=== PATIENT | female | born 1970 | race Hispanic/Latino ===

== ENCOUNTER 2020-07-29 02:21 | Inpatient (IN) | payer SELFPAY ==
[2020-07-29] MEDS ORDERED: Labetalol HCl 100 MG/20 ML VIAL ONE (02:38)
[2020-07-29 02:52] LABS: #Lymphocytes 2.1 thou/uL (1.20-3.40); #Monocytes 0.4 thou/uL (0.11-0.59); %Basophils 0.3 % (0.0-1.0); %Eosinophils 0.2 % (0.0-10.0); %Lymphocytes 15.5 % (21.0-51.0); %Monocytes 2.7 % (0.0-10.0); %Neutrophils 81.3 % (42.0-75.0); Hemoglobin 14.6 g/dL (12.0-16.0); Mean Corpuscular HGB CONC 34.6 g/dL (32.0-36.0); Mean Corpuscular Hemoglobin 30.5 pg (27.0-31.0); Mean Corpuscular Volume 88.4 fL (78.0-98.0); Platelet Count 348 thou/uL (130-400); RBC Distribution Width 11.9 % (11.5-14.5); Red Blood Cell (RBC) Count 4.79 mill/uL (4.20-5.40); White Blood Cell (WBC) Count 13.5 thou/uL (4.8-10.8)
[2020-07-29 03:12] LABS: Acetaminophen Less than 6.0 mcg/mL (10.0-30.0); Alcohol Less than 10 mg/dL (Less than 10); Salicylate Less than 8.0 mg/dL (15.0-30.0)
[2020-07-29 03:17] LABS: ALT (SGPT) 16 U/L (8-55); AST (SGOT) 14 U/L (5-34); Albumin 3.6 g/dL (3.5-5.0); Alkaline Phosphatase 217 U/L (40-110); Anion Gap 15 mmol/L (10-20); BUN (Urea Nitrogen) 8 mg/dL (7.0-18.7); Bilirubin, Total 0.2 mg/dL (0.2-1.2); Calc. Creatinine Clearance 0 mL/min (70-130); Calcium 8.5 mg/dL (7.8-10.44); Carbon Dioxide 23 mmol/L (22-29); Chloride 99 mmol/L (98-107); Globulin 4.5 g/dL (2.4-3.5); Glucose 455 mg/dL (70-105); Potassium 3.9 mmol/L (3.5-5.1); Protein, Total 8.1 g/dL (6.0-8.3); Sodium 133 mmol/L (136-145)
[2020-07-29 03:20] LABS: BHCG - Serum Negative (NEGATIVE); Pregs Control Background? CLEAR/WHITE (CLR/WHITE); Pregs Control Bar Appear? YES (CONTROL BAR)
[2020-07-29 03:30] LABS: Thyroid Stimulating Hormone 1.5994 uIU/mL (0.35-4.94)
[2020-07-29 03:53] LABS: Bacteria/HPF None Seen HPF (None Seen); Bilirubin Negative (Negative); Blood, Urine Negative (Negative); Clarity Clear (Clear); Glucose, Urine (Dipstick) Greater than 1000 mg/dL (Negative); Ketone, Urine Negative (Negative); Leukocyte Negative Leu/uL (Negative); Nitrite Negative (Negative); Protein, Urine (Dipstick) 20 mg/dL (Neg-Trace); RBC/HPF 0-3 HPF (0-3); Specific Gravity, Urine 1.035 (1.002-1.036); Squamous Epithelial 0-3 HPF (0-3); Urobilinogen Normal mg/dL (Less than 2); WBC/HPF 0-3 HPF (0-3)
[2020-07-29 04:00] LABS: Amphetamine Not Detected (NotDetected); Barbiturates Screen Not Detected (NotDetected); Benzodiazepine Screen Not Detected (NotDetected); Cocaine Metabolite Screen Not Detected (NotDetected); Medtox Control Line Valid? VALID (VALID); Medtox Reader # READER 1; Methadone Not Detected (NotDetected); Methamphetamine Not Detected (NotDetected); Opiate Screen Not Detected (NotDetected); Oxycodone Screen Not Detected (NotDetected); Phencyclidine (PCP) Not Detected (NotDetected); THC/Cannabinoid Screen Not Detected (NotDetected); Tricyclic Screen Not Detected (NotDetected)
[2020-07-29] MEDS ORDERED: Insulin Regular 300 UNITS/3 ML VIAL ONE (04:37)
[2020-07-29] MEDS ORDERED: Aspirin Chewable 81 MG TAB ONE (05:54)
[2020-07-29] MEDS ORDERED: hydrALAZINE 20 MG/ML VIAL ONE (06:38)
[2020-07-29] MEDS ORDERED: Acetaminophen 650 MG Suppository PR PRN (08:30)
[2020-07-29] MEDS ORDERED: Senokot S 8.6-50 MG TAB PO PRN (08:30)
[2020-07-29 09:28] LABS: Cardiac Risk 4.9 (Less than 4.5)
[2020-07-29] MEDS ORDERED: Ondansetron PF 4 MG/2 ML Vial IVP PRN (09:28)
[2020-07-29] MEDS ORDERED: Ondansetron ODT 4 MG TAB PO PRN (09:28)
[2020-07-29] MEDS ORDERED: Acetaminophen 325 MG TAB PO PRN (09:29)
[2020-07-29] MEDS ORDERED: Iopamidol-370 76% 500 ML 1 ML ONE (10:06)
[2020-07-29] MEDS ORDERED: Lorazepam 1 MG TAB ONE (11:16)
[2020-07-29 11:29] VITALS: BMI 50.9
[2020-07-29] MEDS ORDERED: Labetalol HCl 100 MG/20 ML VIAL SLOW IVP SCH (11:30)
[2020-07-29] MEDS ORDERED: Lorazepam 1 MG TAB PO SCH (11:30)
[2020-07-29] MEDS: Sodium Chloride 0.9% 1,000 ML IV SCH ×2 (11:32→18:04)
[2020-07-29] MEDS ORDERED: Dextrose 5% in Water 1,000 ML IV PRN (14:04)
[2020-07-29] MEDS ORDERED: Dextrose 50% Abboject 50 ML SYRINGE SLOW IVP PRN (14:04)
[2020-07-29] MEDS ORDERED: hydrALAZINE 25 MG TAB ONE (14:06)
[2020-07-29] MEDS: hydrALAZINE 25 MG TAB PO SCH ×3 (14:09→20:33)
[2020-07-29] MEDS: metFORMIN 500 MG TAB PO SCH (16:57)
[2020-07-29] MEDS: HumaLOG 300 UNITS/3 ML VIAL SC PRN (16:59)
[2020-07-29] MEDS: Metoprolol Tartrate 5 MG/5 ML VIAL IVP PRN (18:59)
[2020-07-29] MEDS ORDERED: Atorvastatin Calcium 20 MG TAB PO SCH (21:00)
[2020-07-30 04:31] LABS: #Eosinphils 0.1 thou/uL (0.0-0.7); #Lymphocytes 3.5 thou/uL (1.20-3.40); #Monocytes 0.8 thou/uL (0.11-0.59); #Neutrophils 10.2 thou/uL (1.40-6.50); %Basophils 0.2 % (0.0-1.0); %Eosinophils 0.9 % (0.0-10.0); %Lymphocytes 23.9 % (21.0-51.0); %Monocytes 5.3 % (0.0-10.0); %Neutrophils 69.7 % (42.0-75.0); Hemoglobin 13.6 g/dL (12.0-16.0); Mean Corpuscular HGB CONC 34.2 g/dL (32.0-36.0); Mean Corpuscular Hemoglobin 30.4 pg (27.0-31.0); Mean Corpuscular Volume 88.8 fL (78.0-98.0); Mean Platelet Volume 6.9 fL (7.4-10.4); Platelet Count 353 thou/uL (130-400); RBC Distribution Width 12.2 % (11.5-14.5); Red Blood Cell (RBC) Count 4.49 mill/uL (4.20-5.40); White Blood Cell (WBC) Count 14.7 thou/uL (4.8-10.8)
[2020-07-30 04:35] LABS: Hemoglobin A1c 10.8 % (4.0-6.0)
[2020-07-30 04:56] LABS: Anion Gap 11 mmol/L (10-20); BUN (Urea Nitrogen) 12 mg/dL (7.0-18.7); Calc. Creatinine Clearance 208 mL/min (70-130); Calcium 8.3 mg/dL (7.8-10.44); Carbon Dioxide 24 mmol/L (22-29); Cardiac Risk 5.6 (Less than 4.5); Chloride 104 mmol/L (98-107); Cholesterol 161 mg/dl (< 200 Desired); Glucose 270 mg/dL (70-105); HDL Cholesterol 29 mg/dL (>60 Neg Risk); LDL Cholesterol, Calculated 102 mg/dL; Potassium 3.8 mmol/L (3.5-5.1); Sodium 135 mmol/L (136-145); Triglycerides 151 mg/dL (Less than 150)
[2020-07-30] MEDS: HumaLOG 300 UNITS/3 ML VIAL SC PRN (06:23)
[2020-07-30] MEDS: hydrALAZINE 25 MG TAB PO SCH ×3 (08:43→21:00)
[2020-07-30] MEDS: metFORMIN 500 MG TAB PO SCH ×2 (08:44→17:19)
[2020-07-30] MEDS: Enoxaparin Sodium 40 MG/0.4 ML SYRINGE SC SCH (08:44)
[2020-07-30] MEDS ORDERED: Dextrose 50% Abboject 50 ML SYRINGE SLOW IVP PRN (09:50)
[2020-07-30] MEDS ORDERED: Dextrose 5% in Water 1,000 ML IV PRN (09:50)
[2020-07-30] MEDS: HumaLOG 300 UNITS/3 ML VIAL SC SCH ×2 (11:20→17:19)
[2020-07-30] MEDS: Metoprolol Tartrate 5 MG/5 ML VIAL IVP PRN (11:23)
[2020-07-30 16:56] LABS: SARS-CoV-2 PCR by NAA Not Detected (NotDetected)
[2020-07-30] MEDS: Lisinopril 2.5 MG TAB PO SCH (20:59)
[2020-07-30] MEDS: Atorvastatin Calcium 20 MG TAB PO SCH (20:59)
[2020-07-31] MEDS: HumaLOG 300 UNITS/3 ML VIAL SC SCH ×3 (06:18→17:18)
[2020-07-31] MEDS: Acetaminophen 325 MG TAB PO PRN (09:25)
[2020-07-31] MEDS: Lisinopril 2.5 MG TAB PO SCH (09:26)
[2020-07-31] MEDS: metFORMIN 500 MG TAB PO SCH ×2 (09:26→17:18)
[2020-07-31] MEDS: Enoxaparin Sodium 40 MG/0.4 ML SYRINGE SC SCH (09:26)
[2020-07-31] MEDS: hydrALAZINE 25 MG TAB PO SCH ×3 (09:26→21:45)
[2020-07-31] MEDS ORDERED: Loperamide HCl 2 MG CAP PO PRN (12:10)
[2020-07-31] MEDS ORDERED: diphenhydrAMINE 25 MG CAP PO PRN (12:10)
[2020-07-31] MEDS: Hydrochlorothiazide 25 MG TAB PO SCH (21:45)
[2020-07-31] MEDS: Atorvastatin Calcium 20 MG TAB PO SCH (21:47)
[2020-07-31] MEDS: Lisinopril 20 MG TAB PO SCH (21:47)
[2020-07-31] MEDS: HumuLIN 70/30 (300 UNITS/3 ML VIAL) SC SCH (23:23)
[2020-08-01] MEDS: Acetaminophen 325 MG TAB PO PRN (06:50)
[2020-08-01] MEDS: metFORMIN 500 MG TAB PO SCH ×2 (09:58→17:08)
[2020-08-01] MEDS: Hydrochlorothiazide 25 MG TAB PO SCH (09:58)
[2020-08-01] MEDS: Lisinopril 20 MG TAB PO SCH ×2 (09:58→20:41)
[2020-08-01] MEDS: hydrALAZINE 25 MG TAB PO SCH ×3 (09:58→20:40)
[2020-08-01] MEDS: HumuLIN 70/30 (300 UNITS/3 ML VIAL) SC SCH ×2 (09:59→20:42)
[2020-08-01] MEDS: Enoxaparin Sodium 40 MG/0.4 ML SYRINGE SC SCH (09:59)
[2020-08-01] MEDS: HumaLOG 300 UNITS/3 ML VIAL SC SCH ×2 (12:52→17:07)
[2020-08-01] MEDS: Atorvastatin Calcium 20 MG TAB PO SCH (20:41)
[2020-08-02] MEDS: Acetaminophen 325 MG TAB PO PRN (05:30)
[2020-08-02] MEDS: HumaLOG 300 UNITS/3 ML VIAL SC SCH (05:33)
[2020-08-02] MEDS ORDERED: Aspirin Chewable 81 MG TAB PO SCH (09:00)
[2020-08-02] MEDS ORDERED: Hydrochlorothiazide 25 MG TAB PO SCH (09:00)
[2020-08-02 09:12] VITALS: BP 124/58; TEMP 98.3
[2020-08-02] MEDS: metFORMIN 500 MG TAB PO SCH (09:16)
[2020-08-02] MEDS: hydrALAZINE 25 MG TAB PO SCH (09:16)
[2020-08-02] MEDS: Enoxaparin Sodium 40 MG/0.4 ML SYRINGE SC SCH (09:17)
[2020-08-02] MEDS: HumuLIN 70/30 (300 UNITS/3 ML VIAL) SC SCH (09:17)
[2020-08-02] MEDS: Lisinopril 20 MG TAB PO SCH (09:17)
== END 2020-08-02 13:32 | disposition home or self-care (01) | DRG 65 ==
LOC: ERS 02:21 → ERHOLD 05:00 → 2NO 16:22
PROVIDERS: ADMIT Internal Medicine; ATTEND Internal Medicine
DX: I63.9 Cerebral infarction, unspecified (principal); I67.4 Hypertensive encephalopathy; G81.94 Hemiplegia, unspecified affecting left nondominant side; Z68.42 Body mass index [BMI] 45.0-49.9, adult; I16.1 Hypertensive emergency; E66.9 Obesity, unspecified; E11.65 Type 2 diabetes mellitus with hyperglycemia; I10 Essential (primary) hypertension; E78.5 Hyperlipidemia, unspecified; R19.7 Diarrhea, unspecified; Z20.822 Contact with and (suspected) exposure to COVID-19; Z90.49 Acquired absence of other specified parts of digestive tract
CPT/HCPCS: 36415; 36416; 51701; 70450; 70496; 70498; 71045; 80048; 80053; 80061; 80306; 80307; 81003; 82010; 83036; 84443; 84484; 84703; 85025; 87635; 93005; 93306; 93880; 95712; 95819; 95957; 96374; 96375; J0360; J1650; J1815; Q9967; U0003; U0005

== ENCOUNTER 2024-07-15 23:32 | Inpatient (IN) | payer MEDICARE, SELFPAY ==
[2024-07-15] MEDS ORDERED: Morphine 4 MG/ML VIAL ONE (23:54)
[2024-07-15] MEDS ORDERED: Ondansetron PF 4 MG/2 ML Vial ONE (23:54)
[2024-07-16 00:19] LABS: #Basophils 0.05 10x3/uL (0.0-0.2); #Eosinophils Less than 0.03 10x3/uL (0.0-0.7); %Basophils 0.2 % (0.0-1.0); %Lymphocytes 5.2 % (21.0-51.0); %Monocytes 4.5 % (0.0-10.0); %Neutrophils 89.6 % (42.0-75.0); Hematocrit 38.9 % (36.0-47.0); Hemoglobin 12.9 g/dL (12.0-16.0); Mean Corpuscular HGB CONC 33.2 g/dL (32.0-36.0); Mean Corpuscular Hemoglobin 28.7 pg (27.0-31.0); Mean Corpuscular Volume 86.4 fL (78.0-98.0); Mean Platelet Volume 9.1 fL (7.4-10.4); Platelet Count 351 10x3/uL (130-400); RBC Distribution Width 13.1 % (11.5-14.5)
[2024-07-16 01:01] LABS: BHCG - Serum Negative (NEGATIVE); Pregs Control Background? CLEAR/WHITE (CLR/WHITE); Pregs Control Bar Appear? YES (CONTROL BAR)
[2024-07-16 01:10] LABS: ALT (SGPT) 29 U/L (8-55); Albumin 2.7 g/dL (3.5-5.0); Anion Gap 14 mmol/L (10-20); BUN (Urea Nitrogen) 9 mg/dL (9.8-20.1); Bilirubin, Total 0.5 mg/dL (0.2-1.2); Calc. Creatinine Clearance 0 mL/min (70-130); Calcium 9.2 mg/dL (7.8-10.44); Carbon Dioxide 25 mmol/L (22-29); Chloride 100 mmol/L (98-107); Estimated GFR 107; Globulin 6.1 g/dL (2.4-3.5); Glucose 307 mg/dL (70-105); Lipase 73 U/L (8-78); Protein, Total 8.8 g/dL (6.0-8.3); Sodium 135 mmol/L (136-145)
[2024-07-16 01:15] LABS: Troponin I Less than 0.010 ng/mL (< 0.028)
[2024-07-16] MEDS ORDERED: Piperacillin/Tazobactam 3.375 GM VIAL ONE (02:40)
[2024-07-16] MEDS ORDERED: Sodium Chloride 0.9% 100 ML ONE (02:40)
[2024-07-16] MEDS ORDERED: Morphine 4 MG/ML VIAL ONE (02:55)
[2024-07-16 02:56] LABS: Bacteria/HPF 1+ HPF (None Seen); Bilirubin Negative (Negative); Blood, Urine Trace (Negative); CAUTI Indications for Culture Pelvic or flank pain; Clarity Clear (Clear); Glucose, Urine (Dipstick) Greater than 1000 mg/dL (Negative); Ketone, Urine 40 mg/dL (Negative); Leukocyte Negative Leu/uL (Negative); Nitrite Negative (Negative); Protein, Urine (Dipstick) 70 mg/dL (Neg-Trace); RBC/HPF 0-3 HPF (0-3); Specific Gravity, Urine 1.058 (1.002-1.036); Squamous Epithelial 0-3 HPF (0-3); pH, Urine 6.5 (5.0-9.0)
[2024-07-16 02:57] LABS: Urine Culture Reflex Yes Yes
[2024-07-16 03:24] LABS: AST (SGOT) 14 U/L (5-34); Alkaline Phosphatase 124 U/L (40-110)
[2024-07-16] MEDS ORDERED: Ondansetron ODT 4 MG TAB SL PRN (06:15)
[2024-07-16] MEDS ORDERED: Sodium Chloride 0.9% 1,000 ML IV SCH (06:15)
[2024-07-16 06:17] LABS: Platelet Adequacy Comment Platelets Normal; RBC Morphology Within Normal Limits
[2024-07-16] MEDS ORDERED: Glucagon 1 MG/ML KIT IM PRN (06:22)
[2024-07-16] MEDS ORDERED: Dextrose 5% in Water 1,000 ML IV PRN (06:22)
[2024-07-16] MEDS ORDERED: Dextrose 50% Abboject 50 ML SYRINGE SLOW IVP PRN (06:22)
[2024-07-16] MEDS ORDERED: Piperacillin/Tazobactam 3.375 GM in Sodium Chloride 0.9% 100 ML IVPB SCH (07:00)
[2024-07-16] MEDS: Enoxaparin 40 MG (0.4 mL) SYRINGE SC SCH (07:37)
[2024-07-16] MEDS: Sodium Chloride 0.9% 1,000 ML IV SCH ×2 (07:38→16:25)
[2024-07-16] MEDS: Morphine 4 MG/ML VIAL SLOW IVP PRN ×2 (07:38→21:31)
[2024-07-16 09:18] LABS: Cardiac Risk 3.8 (Less than 4.5)
[2024-07-16] MEDS ORDERED: Iopamidol-370 76% 500 ML MDV (1 ML CHARGE) ONE (09:57)
[2024-07-16 12:21] VITALS: BMI 48.3
[2024-07-16] MEDS: Insulin Lispro 100 UNIT/ML 10 ML VIAL SC PRN ×2 (13:05→20:45)
[2024-07-16] MEDS: Lisinopril 20 MG TAB PO SCH (14:26)
[2024-07-16] MEDS: Metoprolol Tartrate 25 MG TAB PO SCH ×2 (14:26→20:44)
[2024-07-16] MEDS: cefTRIAXone\\ROCEPHIN 1 GM in Sodium Chloride 0.9% 100 ML IVPB SCH (16:11)
[2024-07-16] MEDS: Acetaminophen 325 MG TAB PO PRN (20:44)
[2024-07-17 05:45] LABS: #Basophils 0.07 10x3/uL (0.0-0.2); %Basophils 0.3 % (0.0-1.0); %Eosinophils 0.4 % (0.0-10.0); %Lymphocytes 6.5 % (21.0-51.0); %Monocytes 6.1 % (0.0-10.0); %Neutrophils 85.9 % (42.0-75.0); Hemoglobin 11.6 g/dL (12.0-16.0); Mean Corpuscular HGB CONC 33.1 g/dL (32.0-36.0); Mean Corpuscular Hemoglobin 29.1 pg (27.0-31.0); Mean Corpuscular Volume 87.7 fL (78.0-98.0); Mean Platelet Volume 9.2 fL (7.4-10.4); Platelet Count 296 10x3/uL (130-400); RBC Distribution Width 13.3 % (11.5-14.5); Red Blood Cell (RBC) Count 3.99 mill/uL (4.20-5.40)
[2024-07-17 06:15] LABS: ALT (SGPT) 24 U/L (8-55); AST (SGOT) 11 U/L (5-34); Alkaline Phosphatase 109 U/L (40-110); Anion Gap 12 mmol/L (10-20); BUN (Urea Nitrogen) 8 mg/dL (9.8-20.1); Bilirubin, Total 0.6 mg/dL (0.2-1.2); Calc. Creatinine Clearance 221 mL/min (70-130); Calcium 7.9 mg/dL (7.8-10.44); Carbon Dioxide 20 mmol/L (22-29); Chloride 106 mmol/L (98-107); Estimated GFR 110; Glucose 224 mg/dL (70-105); Lipase 18 U/L (8-78); Potassium 3.6 mmol/L (3.5-5.1); Sodium 134 mmol/L (136-145)
[2024-07-17] MEDS: Ondansetron PF 4 MG/2 ML Vial IVP PRN (07:02)
[2024-07-17] MEDS: Lisinopril 20 MG TAB PO SCH (08:07)
[2024-07-17] MEDS ORDERED: hydrALAZINE 20 MG/ML VIAL SLOW IVP PRN (08:17)
[2024-07-17] MEDS: Aspirin Chewable 81 MG TAB PO SCH (11:52)
[2024-07-17] MEDS: Sodium Chloride 0.9% 1,000 ML IV SCH (11:53)
[2024-07-18 06:12] LABS: #Basophils 0.05 10x3/uL (0.0-0.2); %Basophils 0.3 % (0.0-1.0); %Eosinophils 1.7 % (0.0-10.0); %Monocytes 6.3 % (0.0-10.0); %Neutrophils 81.8 % (42.0-75.0); Hemoglobin 11.2 g/dL (12.0-16.0); Mean Corpuscular HGB CONC 33.9 g/dL (32.0-36.0); Mean Corpuscular Hemoglobin 29.6 pg (27.0-31.0); Mean Corpuscular Volume 87.1 fL (78.0-98.0); Mean Platelet Volume 9.2 fL (7.4-10.4); Platelet Count 289 10x3/uL (130-400); RBC Distribution Width 13.2 % (11.5-14.5); Red Blood Cell (RBC) Count 3.79 mill/uL (4.20-5.40)
[2024-07-18 06:34] LABS: ALT (SGPT) 36 U/L (8-55); AST (SGOT) 18 U/L (5-34); Albumin 1.7 g/dL (3.5-5.0); Alkaline Phosphatase 126 U/L (40-110); Anion Gap 11 mmol/L (10-20); BUN (Urea Nitrogen) 7 mg/dL (9.8-20.1); Bilirubin, Total 0.4 mg/dL (0.2-1.2); Calc. Creatinine Clearance 234 mL/min (70-130); Calcium 7.9 mg/dL (7.8-10.44); Carbon Dioxide 22 mmol/L (22-29); Chloride 103 mmol/L (98-107); Estimated GFR 112; Globulin 4.9 g/dL (2.4-3.5); Glucose 211 mg/dL (70-105); Potassium 3.3 mmol/L (3.5-5.1); Protein, Total 6.6 g/dL (6.0-8.3); Sodium 133 mmol/L (136-145)
[2024-07-19 05:57] LABS: #Basophils 0.06 10x3/uL (0.0-0.2); %Basophils 0.4 % (0.0-1.0); %Eosinophils 2.9 % (0.0-10.0); %Lymphocytes 12.6 % (21.0-51.0); %Monocytes 6.9 % (0.0-10.0); %Neutrophils 76.3 % (42.0-75.0); Hematocrit 32.7 % (36.0-47.0); Mean Corpuscular HGB CONC 33.6 g/dL (32.0-36.0); Mean Corpuscular Hemoglobin 29.6 pg (27.0-31.0); Mean Corpuscular Volume 87.9 fL (78.0-98.0); Mean Platelet Volume 9.3 fL (7.4-10.4); Platelet Count 301 10x3/uL (130-400); Red Blood Cell (RBC) Count 3.72 mill/uL (4.20-5.40)
[2024-07-19 06:14] LABS: ALT (SGPT) 50 U/L (8-55); AST (SGOT) 21 U/L (5-34); Albumin 1.7 g/dL (3.5-5.0); Alkaline Phosphatase 136 U/L (40-110); Anion Gap 11 mmol/L (10-20); BUN (Urea Nitrogen) 6 mg/dL (9.8-20.1); Bilirubin, Total 0.3 mg/dL (0.2-1.2); Calc. Creatinine Clearance 239 mL/min (70-130); Calcium 7.9 mg/dL (7.8-10.44); Carbon Dioxide 25 mmol/L (22-29); Chloride 102 mmol/L (98-107); Estimated GFR 112; Globulin 5.1 g/dL (2.4-3.5); Glucose 220 mg/dL (70-105); Potassium 3.4 mmol/L (3.5-5.1); Protein, Total 6.8 g/dL (6.0-8.3); Sodium 135 mmol/L (136-145)
[2024-07-19 16:32] VITALS: BP 160/84; TEMP 97.5
== END 2024-07-19 15:56 | disposition home or self-care (01) | DRG 439 ==
LOC: ERS 23:32 → T4-A 07-16 07:12 → OBSVTOIN 07-17 08:17
PROVIDERS: ADMIT Internal Medicine; ATTEND Internal Medicine
DX: K85.90 Acute pancreatitis without necrosis or infection, unspecified (principal); I69.854 Hemiplegia and hemiparesis following other cerebrovascular disease affecting left non-dominant side; N39.0 Urinary tract infection, site not specified; Z68.42 Body mass index [BMI] 45.0-49.9, adult; E11.9 Type 2 diabetes mellitus without complications; E78.5 Hyperlipidemia, unspecified; Z90.49 Acquired absence of other specified parts of digestive tract; I10 Essential (primary) hypertension; Z79.4 Long term (current) use of insulin; Z79.899 Other long term (current) drug therapy; E66.01 Morbid (severe) obesity due to excess calories; Z79.82 Long term (current) use of aspirin; Z79.84 Long term (current) use of oral hypoglycemic drugs
CPT/HCPCS: 36415; 36416; 74177; 80053; 80061; 81001; 83605; 83690; 84484; 84703; 85025; 87077; 87086; 87186; 93005; 96361; 96365; 96372; 96375; 96376; G0378; J0696; J1650; J1815; J2270; J2405; J2543; J7030; Q9967